=== PATIENT | female | born 1985 | race Caucasian/White ===

== ENCOUNTER 2016-09-22 10:28 | Emergency (ER) | payer MEDICAID ==
[~2016-09-22] VITALS: Ht 157.5 cm; Wt 80.6 kg
[2016-09-22 10:30] VITALS: BP 114/78
[2016-09-22] MEDS ORDERED: HYDROmorphone 1 MG/ML, 1ML IVPush PRN (11:30)
[2016-09-22] MEDS ORDERED: SODIUM CHLORIDE FLUSH 10ML SYR IVF ONE (11:30)
[2016-09-22] MEDS ORDERED: HYDROmorphone 1 MG/ML, 1ML IM STA (11:31)
[2016-09-22] MEDS ORDERED: LIDOCAINE 1%, 20ML ONE ×2 (11:35→11:44)
[2016-09-22] MEDS ORDERED: HYDROmorphone 1 MG/ML, 1ML ONE (11:44)
[2016-09-22 12:02] LABS: BLOOD UREA NITROGEN 9 mg/dL (7-18)
== END 2016-09-22 12:56 | disposition home or self-care (01) ==
LOC: ED 12:20
DX: O23.591 Infection of other part of genital tract in pregnancy, first trimester (principal); Z3A.00 Weeks of gestation of pregnancy not specified; N76.4 Abscess of vulva; Z85.41 Personal history of malignant neoplasm of cervix uteri
CPT/HCPCS: 36415; 56405; 80048; 82040; 84703; 85025; 99284

== ENCOUNTER 2016-10-03 21:47 | Emergency (ER) | payer MEDICAID ==
[~2016-10-03] VITALS: Ht 157.5 cm; Wt 82.9 kg
[2016-10-03 22:01] VITALS: BP_DIAS 80
[2016-10-03 22:57] LABS: ASPARTATE AMINO TRANSFERASE 12 U/L (15-37); BLOOD UREA NITROGEN 13 mg/dL (7-18)
[2016-10-03] MEDS ORDERED: PREN1TAB60 PO (23:42)
[2016-10-04 00:49] VITALS: BP_SYST 118
== END 2016-10-04 00:51 | disposition home or self-care (01) ==
LOC: ED 23:59
DX: O20.0 Threatened abortion (principal)
CPT/HCPCS: 36415; 76801; 80053; 81001; 84702; 85025; 86901; 87081; 87086; 87880